=== PATIENT | female | born 1945 | race Caucasian/White ===

== ENCOUNTER → 2017-03-25 | Outpatient (CLI) | payer OTHER ==
[~2017-03-25] MED LIST: AMT24 PO; ASPCH81X PO; CARV12.52 PO; CLOM25CA3 PO; COEN1CAP7 PO; CRDCD/180 PO; DARI15TA PO; HYDR-5688 PO; LANS30CA12 PO; LOSA100T33 PO; OMEG100046 PO; POTA10TA PO; SIMV20TA5 PO; SPIR25TA PO; TERA1CAP63 PO
[2017-03-25 15:33] LABS: BASO % 0.3 %; BASO ABS # 0.02 K/uL (0-0.2); COMPLETE YES; HEMATOCRIT 32.2 % (37-47); IG% 0.3 %; LYMPH % 12.1 %; LYMPH ABS # 0.88 K/uL (1.2-3.4); MEAN CELL VOLUME 80.3 fL (80-100); MEAN CORPUSCULAR HEMOGLOBIN 26.9 pg (25-34); MEAN CORPUSCULAR HGB CONC 33.5 g/dl (32-36); MEAN PLATELET VOLUME 9.4 fL (7.4-10.4); MONO % 3.3 %; PLATELET COUNT 277 K/uL (130-400); RED BLOOD COUNT 4.01 M/uL (4.2-5.4)
[2017-03-25 16:08] LABS: BLOOD UREA NITROGEN 22 mg/dl (7-18); BUN/CREATININE RATIO 23.9 (10-20); CALCIUM 8.9 mg/dl (8.5-10.1); CARBON DIOXIDE 27 mmol/L (21-32); CHLORIDE 96 mmol/L (98-107); GLUCOSE 128 mg/dl (70-99); SODIUM 130 mmol/L (136-145)
== END | disposition home or self-care (01) ==
LOC: C.CPL 13:25
PROVIDERS: ATTEND Orthopaedic Surgery
DX: Z01.818 Encounter for other preprocedural examination (principal); M75.122 Complete rotator cuff tear or rupture of left shoulder, not specified as traumatic

== ENCOUNTER → 2017-03-28 | Day surgery (SDC) | payer OTHER ==
[2017-03-27 13:53] VITALS: Ht 165.1 cm; Wt 84.1 kg
[~2017-03-28] VITALS: Ht 165.1 cm; Wt 84.1 kg
[~2017-03-28] MED LIST changes: +ATROPINE SULFATE 0.1 MG/ML 5ML SYR IV PRN; +CEFAZOLIN 2000MG IV PUSH 10 ML IV SCH; +DEXAMETHASONE SOD INJ 4 MG/ML VIAL ONE; +EpINEphrine INJ 1MG/ML AMP 1 MG/ML AMP ONE; +FENTANYL CITRATE INJ 50 MCG/1 ML 2 ML VIAL IV PRN; +FENTANYL CITRATE INJ 50 MCG/1 ML 2 ML VIAL ONE; +HYDROCODONE/ACETAMOPHEN 5/325MG TAB PO PRN; +KETOROLAC TROMETHAMINE 30 MG/ML VIAL IV. PRN; +KETOROLAC TROMETHAMINE 30 MG/ML VIAL ONE; +LACTATED RINGER'S 1000ML 1,000 ML IV SCH; +LIDOCAINE HCL 2% 2 ML VIAL (20MG/ML) ONE; +MIDAZOLAM HCL 1 MG/ML 2ML VIAL ONE; +ONDANSETRON INJ 2 MG/ML 2 ML VIAL IV PRN; +ONDANSETRON INJ 2 MG/ML 2 ML VIAL ONE; +PATIENT'S ALLERGY INFO NEEDS ENTERED SCH; +PROPOFOL IV EMULSION 10 MG/ML 20 ML VIAL IV ONE; +ROPIVACAINE 0.5% 5 MG/ML 30 ML VIAL ONE; +SODIUM CHLORIDE 0.9% 1000ML 1,000 ML IV SCH
--- NOTE | 2017-03-28 07:01 | History & Physical Bridge - [place] ---
H&P Re-Evaluation Bridge Note: I have examined the patient, reviewed the History & Physical and in the interval since the performance of the History & Physical I have noted the following changes of clinical significance: No changes noted
--- NOTE | 2017-03-28 15:09 | Discharge Instructions-SurgCtr ---
Discharge Instructions Date of Service Mar 28, 2017. Visit Reason for Visit: Left Knee Acute Medial Meniscal Tear, Pain Discharge Discharge Diagnosis / Problem: SAME ABOVE Discharge Goals Goal(s): Decrease discomfort, Improve function Activity Recommendations Activity Limitations: as noted below Lifting Limitations: gradually increase as tolerated Exercise/Sports Limitations: gradually increase as tolerated Shower/Bathe: tomorrow Driving or Machine Use: resume 1 day after discharge Anesthesia . Post Anesthesia Instructions: If you have had General Anesthesia or IV Sedation: * Do not drive today. * Resume driving when surgeon permits. * Do not make important decisions or sign legal documents today. * Call surgeon for: 1. Temperature elevations greater than 101 degrees F. 2. Uncontrollable pain. 3. Excessive bleeding. 4. Persistent nausea and vomiting. 5. Medication intolerance (nausea, vomiting or rash). * For nausea and vomiting use only clear liquids such as: tea, soda, bouillon until nausea subsides, then gradually increase diet as tolerated. * If you have any concerns or questions, call your surgeon's office. If physician is unavailable and it is an emergency, call 911 or go to the nearest emergency room. . Instructions / Follow-Up Instructions / Follow-Up MEDICATIONS: * Resume previous medications unless instructed otherwise by your surgeon. * Always take pain medication on a full stomach or with food to avoid upset stomach. * Do not drink alcohol or drive while taking narcotics. * Ibuprofen or Tylenol may be taken if narcotic not needed. SPECIAL CARE INSTRUCTIONS: __ None _X_ Keep extremity elevated and iced x 48 hours; apply ice 20-30 minutes 8-10 times/day. May remove at night. _X_ Crutches _X_ May discard when able __ Brace/Post-op shoe __ 24 hrs/day __ Remove at night _X_ Dressing __ Maintain until seen in office, may shower with plastic over site _X_ Remove dressings in 24-48 hours and then may shower _X_ Cover incisions with band-aids after showering __ Do not remove steri-strips Call physician if chills or temperature rises above 102 degrees or pain unrelieved by prescribed pain medications. Office [phone] Diet Recommendations Home Diet: no limitations Fluid Restriction: None Procedures Procedures Performed: Left Knee Arthroscopy, Partial Medial and Lateral Meniscectomy, Chondroplasty Pending Studies Studies pending at discharge: no Work Instructions Return To Work: after follow-up Medical Emergencies . Who to Call and When: Medical Emergencies: If at any time you feel your situation is an emergency, please call 911 immediately. . Non-Emergent Contact Non-Emergency issues call your: Primary Care Provider Call Non-Emergent contact if: you have a fever, temperature is above 101.5 . . "Provider Documentation" section prepared by David Ackerman. .
[2017-03-28 15:36] VITALS: TEMP 36.5
--- NOTE | 2017-03-28 16:02 | Anesthesia Progress Nt - [facility] ---
Anesthesia Post Op Note Date & Time Mar 28, 2017 at 16:02 Vital Signs Vital Signs Past 12 Hours Date Time Temp Pulse Resp B/P (MAP) Pulse Ox O2 Delivery O2 Flow Rate FiO2 03/28/17 15:36 36.5 65 20 158/78 (104) 95 Room Air 03/28/17 15:32 62 97 03/28/17 15:32 61 03/28/17 15:31 167/85 03/28/17 15:31 36.7 61 20 167/85 95 Room Air 03/28/17 15:29 60 99 03/28/17 15:29 60 03/28/17 15:28 62 03/28/17 15:28 62 98 03/28/17 15:27 61 03/28/17 15:27 61 97 03/28/17 15:26 166/80 03/28/17 15:24 63 16 100 03/28/17 15:24 60 16 03/28/17 15:21 172/84 03/28/17 15:19 58 9 99 03/28/17 15:19 58 9 03/28/17 15:18 61 10 99 03/28/17 15:18 61 10 03/28/17 15:17 58 11 100 03/28/17 15:17 58 11 03/28/17 15:16 177/82 03/28/17 15:15 61 10 03/28/17 15:15 59 10 100 03/28/17 15:14 67 11 99 03/28/17 15:14 62 11 03/28/17 15:13 60 9 99 03/28/17 15:13 59 9 03/28/17 15:11 160/80 03/28/17 15:08 59 15 03/28/17 15:08 59 15 99 03/28/17 15:07 59 10 03/28/17 15:07 59 10 98 03/28/17 15:06 173/81 03/28/17 15:04 157/93 03/28/17 15:03 173/81 03/28/17 15:02 36.8 61 16 157/93 98 Mask 8 03/28/17 15:02 13 03/28/17 15:02 61 13 03/28/17 13:19 36.9 64 18 129/73 (91) 99 Room Air Notes Mental Status: alert / awake / arousable, participated in evaluation Pt Amnestic to Procedure: Yes Nausea / Vomiting: adequately controlled Pain: adequately controlled Airway Patency, RR, SpO2: stable & adequate BP & HR: stable & adequate Hydration State: stable & adequate Anesthetic Complications: no major complications apparent
[2017-03-28 16:10] VITALS: BP 143/79; PULSE 64; O2SAT 95
--- NOTE | 2017-03-28 18:36 | [facility] Post Operative Brief Note ---
Immediate Operative Summary Operative Date Mar 28, 2017. Pre-Operative Diagnosis Left Knee Medial Meniscus Tear Post-Operative Diagnosis Same Procedure(s) Performed Left Knee Arthroscopy, Partial Medial and Lateral Meniscectomy, Chondroplasty Surgeon Dr. Degroot Steam Bone Press Tender Surgeon(s) Vinnie Ackerman PA-C Estimated Blood Loss 5ml Findings as above Specimens None Complication(s) None Disposition Recovery Room / PACU
--- NOTE | 2017-03-28 19:17 | OPERATIVE REPORT ---
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 POSTOPERATIVE DIAGNOSIS: Same. PROCEDURE: Left knee diagnostic arthroscopy with partial medial and lateral meniscectomies and chondroplasty. SURGEON: Dr. Carlos Alberto Degroot. AIRPLANE PILOT HELPER: Luciano Ackerman PA-C, whose assistance was necessary for positioning of the knee and helping with instrumentation. ANESTHESIA: General. COMPLICATIONS: None. CONDITION: Stable to PACU. INDICATIONS: Yamileth is a pleasant 71-year-old female who presented to my office with complaints of left knee pain. MRI and clinical examination were diagnostic for medial and lateral meniscal tears with chondromalacia. After failing conservative treatment, she elected to undergo arthroscopy. DESCRIPTION OF THE PROCEDURE: On 03/28/2017, she arrived at [facility] for the above procedure. She was seen in the preoperative holding area and the operative extremity was identified and signed. She was given a preoperative antibiotic and taken back to the operating room, laid on the table in supine position and put under general anesthesia. The left knee was then prepped and draped in sterile fashion. Time-out was done and the patient and operative extremity was properly identified. A scope was introduced in the lateral parapatellar portal. Diagnostic arthroscopy showed no loose bodies in the suprapatellar pouch. 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 The scope was then brought into the medial compartment. There was some grade 2 and grade 3 chondral changes across the distal medial femoral condyle. A medial parapatellar portal was made under direct visualization. A probe was used to probe the posterior aspect of the meniscus and there was a complex tear involving the posterior meniscus. A shaver and a biter were used to remove all the unstable portions of the meniscus. The tear did not involve the root, but unfortunately involved a large portion of the posterior meniscus. All unstable pieces were removed. Pictures were taken. A shaver was then used to do a chondroplasty of the distal medial femoral condyle to remove any loose cartilage fragments that could cause intraarticular irritation. The scope was brought into the trochlea. ACL and PCL were intact. The scope was then brought into the lateral compartment. There was no cartilage damage laterally, but there was a small radial tear of the mid portion of the lateral meniscus. A shaver was used to remove the unstable portions of the meniscus back to stable margins. Multiple pictures were taken. The knee was brought into full extension. A shaver was used to do a limited debridement of the fat pad and some of the inflamed synovium. The scope was then put in the medial parapatellar portal. A repeat diagnostic arthroscopy showed no additional pathology. Arthroscopic instruments were removed. Portal sites were closed with 3-0 nylon. The knee was then injected with 30 mL of Naropin with epinephrine and Toradol. She was then placed in a soft compressive dressing, extubated, transferred to a [facility] and taken to the postanesthesia care unit in stable condition. She tolerated the procedure well. I attest to the content of the Intraoperative Record and any orders documented therein. Any exception s are noted below.
== END | disposition home or self-care (01) ==
LOC: X.SURG 12:02
PROVIDERS: ATTEND Orthopaedic Surgery
DX: S83.232A Complex tear of medial meniscus, current injury, left knee, initial encounter (principal); S83.282A Other tear of lateral meniscus, current injury, left knee, initial encounter; X58.XXXA Exposure to other specified factors, initial encounter; Y93.89 Activity, other specified; I25.2 Old myocardial infarction; G47.33 Obstructive sleep apnea (adult) (pediatric); I25.10 Atherosclerotic heart disease of native coronary artery without angina pectoris; Z82.49 Family history of ischemic heart disease and other diseases of the circulatory system